=== PATIENT | male | born 1975 | race Caucasian/White ===

== ENCOUNTER 2017-01-12 18:37 | Emergency (ER) | payer OTHER ==
[~2017-01-12] VITALS: Ht 185.4 cm; Wt 100.7 kg
[~2017-01-12 18:37] MED LIST: 'PARAFON FORTE500 M1 PO; AMOXICILLIN500 M2 PO; BACTRIM DS 8001 TA1 PO; CYCLOBENZAPRINE5 MG PO; HYDROCODONE BIT1 T11 PO; MEDROL DOSEPAK4 MG PO; NAPROSYN500 MG PO; TESSALON PERLE100 M1 PO; TORADOL10 MG PO; ULTRAM50 MG PO; VENTOLIN H0.09 MG/AC INH; VICODIN 5-3001 EACH PO; VICODIN 5/500 505 MG PO; ZYRTEC10 MG PO
[2017-01-12] MEDS ORDERED: Motrin,Rufen800 MG PO (19:35)
[2017-01-12] MEDS ORDERED: CYCLOBENZAPRINE5 M3 PO (19:35)
[2017-01-12] MEDS ORDERED: ULTRAM50 MG PO (19:35)
== END 2017-01-12 19:40 | disposition home or self-care (01) ==
LOC: ED 18:37
DX: G89.29 Other chronic pain (principal); M54.5 Low back pain; F17.200 Nicotine dependence, unspecified, uncomplicated; Z98.890 Other specified postprocedural states; X58.XXXA Exposure to other specified factors, initial encounter; Y93.89 Activity, other specified; Y92.096 Garden or yard of other non-institutional residence as the place of occurrence of the external cause; Y99.9 Unspecified external cause status

== ENCOUNTER 2017-04-13 21:36 | Emergency (ER) | payer OTHER ==
[~2017-04-13] VITALS: Ht 185.4 cm; Wt 96.2 kg
[~2017-04-13 21:36] MED LIST changes: +CYCLOBENZAPRINE5 M3 PO; +Motrin,Rufen800 MG PO
== END 2017-04-14 00:44 | disposition home or self-care (01) ==
LOC: ED 21:36
DX: K08.89 Other specified disorders of teeth and supporting structures (principal); F17.200 Nicotine dependence, unspecified, uncomplicated; G89.29 Other chronic pain; M54.5 Low back pain; Z98.890 Other specified postprocedural states

== ENCOUNTER 2017-08-15 21:07 | Emergency (ER) | payer OTHER ==
[~2017-08-15] VITALS: Ht 185.4 cm; Wt 93.0 kg
[2017-08-15] MEDS ORDERED: PROAIR HFA8.5 GM INH (23:21)
[2017-08-15] MEDS ORDERED: TESSALON PERLE100 M1 PO (23:21)
[2017-08-15] MEDS ORDERED: HYCODAN/HYDROMET5 ML PO (23:21)
== END 2017-08-16 00:36 | disposition home or self-care (01) ==
LOC: ED 21:07
DX: J11.1 Influenza due to unidentified influenza virus with other respiratory manifestations (principal); F17.200 Nicotine dependence, unspecified, uncomplicated

== ENCOUNTER 2022-08-16 05:33 | Emergency (ER) | payer SELFPAY ==
[~2022-08-16] VITALS: Ht 185.4 cm; Wt 122.5 kg
[~2022-08-16 05:33] MED LIST changes: +HYCODAN/HYDROMET5 ML PO; +PROAIR HFA8.5 GM INH
== END 2022-08-16 06:02 | disposition left against medical advice (07) ==
LOC: ED 05:33
DX: T50.901A Poisoning by unspecified drugs, medicaments and biological substances, accidental (unintentional), initial encounter (principal); R40.4 Transient alteration of awareness; Y92.89 Other specified places as the place of occurrence of the external cause; Z98.890 Other specified postprocedural states; F10.90 Alcohol use, unspecified, uncomplicated